=== PATIENT | male | born 1940 | race Caucasian/White ===

== ENCOUNTER → 2019-06-01 07:49 | Outpatient (BNVA) | payer MEDICARE, SELFPAY | PROVIDERS: Family Provider Family Medicine; PCP Family Medicine; Visit Provider Anesthesiology | DX: G89.29 Other chronic pain (principal); M48.061 Spinal stenosis, lumbar region without neurogenic claudication; M54.16 Radiculopathy, lumbar region; M79.651 Pain in right thigh; M79.652 Pain in left thigh; Z79.891 Long term (current) use of opiate analgesic | CPT/HCPCS: 99214 ==

== ENCOUNTER → 2019-09-13 08:17 | Outpatient (BNVA) | payer MEDICARE, SELFPAY | PROVIDERS: Family Provider Family Medicine; PCP Family Medicine; Visit Provider Anesthesiology | DX: G89.29 Other chronic pain (principal); M48.061 Spinal stenosis, lumbar region without neurogenic claudication; M54.16 Radiculopathy, lumbar region; Z79.891 Long term (current) use of opiate analgesic | CPT/HCPCS: 99213; 99214 ==

== ENCOUNTER → 2019-11-17 08:00 | Outpatient (BNVA) | payer MEDICARE, SELFPAY | PROVIDERS: Family Provider Family Medicine; PCP Family Medicine; Visit Provider Anesthesiology | DX: G89.29 Other chronic pain (principal); M54.42 Lumbago with sciatica, left side; M54.41 Lumbago with sciatica, right side; M48.061 Spinal stenosis, lumbar region without neurogenic claudication; M54.16 Radiculopathy, lumbar region; Z79.891 Long term (current) use of opiate analgesic | CPT/HCPCS: 99214 ==

== ENCOUNTER → 2020-01-18 08:44 | Outpatient (BNVA) | payer MEDICARE, SELFPAY | PROVIDERS: Family Provider Family Medicine; PCP Family Medicine; Visit Provider Anesthesiology | DX: G89.29 Other chronic pain (principal); M48.061 Spinal stenosis, lumbar region without neurogenic claudication; M54.16 Radiculopathy, lumbar region; Z79.891 Long term (current) use of opiate analgesic | CPT/HCPCS: 99213; 99214 ==

== ENCOUNTER → 2020-03-30 08:28 | Outpatient (BNVA) | payer MEDICARE, SELFPAY | PROVIDERS: Family Provider Family Medicine; PCP Family Medicine; Visit Provider Anesthesiology | DX: G89.29 Other chronic pain (principal); M48.061 Spinal stenosis, lumbar region without neurogenic claudication; M54.16 Radiculopathy, lumbar region; Z79.891 Long term (current) use of opiate analgesic | CPT/HCPCS: 99212; 99214 ==

== ENCOUNTER → 2020-05-31 08:00 | Outpatient (BNVA) | payer MEDICARE, SELFPAY | PROVIDERS: Family Provider Family Medicine; PCP Family Medicine; Visit Provider Anesthesiology | DX: G89.29 Other chronic pain (principal); M48.061 Spinal stenosis, lumbar region without neurogenic claudication; M54.16 Radiculopathy, lumbar region; Z79.891 Long term (current) use of opiate analgesic | CPT/HCPCS: 99213 ==

== ENCOUNTER → 2020-07-19 08:03 | Outpatient (BNVA) | payer MEDICARE, SELFPAY | PROVIDERS: Family Provider Family Medicine; PCP Family Medicine; Visit Provider Anesthesiology | DX: G89.29 Other chronic pain (principal); M48.061 Spinal stenosis, lumbar region without neurogenic claudication; M54.16 Radiculopathy, lumbar region; Z79.891 Long term (current) use of opiate analgesic | CPT/HCPCS: 99213; 99214 ==

== ENCOUNTER → 2020-09-27 13:44 | Outpatient (BNVA) | payer MEDICARE, SELFPAY | PROVIDERS: Family Provider Family Medicine; PCP Family Medicine; Visit Provider Anesthesiology | DX: G89.29 Other chronic pain (principal); M48.061 Spinal stenosis, lumbar region without neurogenic claudication; M54.16 Radiculopathy, lumbar region; Z79.891 Long term (current) use of opiate analgesic; Z87.891 Personal history of nicotine dependence | CPT/HCPCS: 99213 ==

== ENCOUNTER 2020-10-05 09:13 | Emergency (ER) | payer MEDICARE, SELFPAY ==
[2020-10-05 09:16] VITALS: BMI 19.8
[2020-10-05 09:26] VITALS: BP 116/55; PULSE 81; RESP 22; TEMP 36.8; O2SAT 93
[2020-10-05 09:38] VITALS: O2SAT 91
--- NOTE | 2020-10-05 10:06 | XR_ITS ---
WS: [id number] Portable AP upright chest, 10/05/2020 Clinical Data: dyspnea/cough Comparison: Portable chest, 01/04/2015. Findings: There is a right-sided dialysis catheter entering in the superior vena cava. There is a per manent pacemaker with the generator over the left lateral chest. No nodules, masses or effusions are seen. The heart is normal. Pulmonary vascularity is not remarkable. No pneumonia or pneumothorax is p resent. There are monitor leads on the chest wall. The patient has had an anterior cervical disc fusi on. XR/XR chest 1V portable [id number] Impression: 1. Dialysis catheter. 2. Permanent cardiac pacemaker.
--- NOTE | 2020-10-05 10:07 | ECG_ITS ---
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 Measurements Intervals [place] Rate: 60 P: 150 IN: 297 QRS: -61 QRSD: 137 T: 95 QT: 430 QTc: 430 Interpretive Statements ELECTRONIC ATRIAL PACEMAKER MARKED LEFT AXIS DEVIATION [QRS AXIS < -30] LEFT BUNDLE BRANCH BLOCK [120+ ms QRS DURATION, 80+ ms Q/S IN V1/V2, 85+ ms R IN I/aVL/V5/V6] Compared to ECG 01/05/2015 05:27:20 Left-axis deviation now present Left bundle-branch block now present Sinus bradycardia no longer present First degree AV block no longer present Myocardial infarct finding no longer present Electronically Signed On 10-05-2020 14:13:43 CDT by Bridget Oliver M.D. [id number] f
--- NOTE | 2020-10-05 10:09 | ED_ITS ---
HPI - Seizure General: Chief Complaint: Seizure Stated Complaint: DROP IN BP/ SEIZURE LIKE ACTIVITY Time Seen by Provider: 10/05/20 09:45 History of Present Illness: HPI Narrative: 79-year-old male presents emergency room via EMS from dialysis clinic. He is finished his dialysis run this morning gotten up to leave the building get lightheaded dizzy and had a near syncopal episode. He does have a little bit of a headache. He is not had any vomiting or diarrhea is awake and alert at this time denies any chest pain no recent illness. MD complaint: possible seizure Onset (ago): minute(s) Description of Episode: loss of consciousness and tonic-clonic movement Witnessed: Yes - by Bystander Trauma: No Seizure History: No Place: dialysis clinic Associated symptoms: Reports anorexia, malaise and weakness; Deny chest pain, chills, confusion, cough, diaphoresis, fever(s), rash, short of breath or syncope Treatments prior to arrival: none Review of Systems Const: Reports: malaise; Denies: fever(s), chills or diaphoresis ENMT: Denies: throat pain, ear or mastoid pain, nasal discharge or nasal congestion Card: Denies: chest pain or syncope Resp: Denies: dyspnea, productive cough or non-productive cough GI: Reports: nausea; Denies: abdominal pain : Denies: flank pain, dysuria, urinary frequency or urinary urgency Skin/Breast: Denies: rash or pruritus Neuro: Denies: confusion [facility] ED PFSH: Medical History (Updated 10/18/20 @ 07:49 by Donny Bradshaw DO) Encounter for long-term use of opiate analgesic Hiatal hernia Opioid contract exists Pacemaker Spinal stenosis of lumbar region with radiculopathy Surgical History H/O angioplasty History of carpal tunnel surgery of left wrist History of carpal tunnel surgery of right wrist History of shoulder surgery S/P cervical spinal fusion S/P nasal surgery Family History Other CAD (coronary artery disease) Diabetes Social History Smoking and tobacco status: former smoker Second hand smoke exposure: No Alcohol intake: never History of recent travel: No Physical Exam Const: COMMON NORMALS: no acute distress GENERAL APPEARANCE: cooperative and comfortable ORIENTATION/CONSCIOUSNESS: Yes awake, Yes oriented to person, Yes oriented to place and Yes oriented to time HENMT: COMMON NORMALS: normocephalic, atraumatic, hearing grossly normal bilaterally and external ears normal HEAD & SCALP: normocephalic and atraumatic EXTERNAL EAR: Yes external ears normal Neck/C-Spine: COMMON NORMALS: no JVD Lymph: LYMPHATIC: no lymphadenopathy noted and no lymphedema noted Resp: COMMON NORMALS: normal respiratory effort, No retractions, No use of accessory muscles and clear to auscultation bilaterally AUSCULTATION: clear to auscultation bilaterally Cardio: COMMON NORMALS: no JVD, regular rate, regular rhythm and No murmurs present (Cardio) RATE: regular rate RHYTHM: regular rhythm GI: COMMON NORMALS: Soft to palpation and No hepatosplenomegaly present AUS CULTATION: Yes normoactive bowel sounds PALPATION: Yes Soft to palpation, No Tenderness to palpation present (GI), No Guarding due to palpation present (GI) and Yes No hepatosplenomegaly present Extremity: COMMON NORMALS: normal to inspection, capillary refill normal, no clubbing, cyanosis or edema, no calf tenderness and no pedal edema Neuro: SENSORIUM/ORIENTATION: Yes oriented to person, Yes oriented to place and Yes oriented to time Skin: COMMON NORMALS: no rashes or lesions noted GENERAL SKIN EXAM: no rashes or lesions noted Course Vital Signs: Vital signs: Vital Signs Temperature 98.2 F 10/05/20 09:26 Pulse Rate 73 10/05/20 10:37 Respiratory Rate 24 H 10/05/20 10:37 Blood Pressure 120/65 10/05/20 10:37 Pulse Oximetry 93 10/05/20 10:37 MDM - Seizure MDM Narrative: Medical decision making narrative: New onset seizures with previous episodes like this recommend that he be admitted for observation to e valuate further he declined. Patient is demanding he have a private room otherwise he will not be admitted unfortunately hospitalist hopeful at this time we do not have one available he does not have any signs or symptoms suggestive of Covid there is no other infectious disease process at this point that would require him to have a private room. We encouraged him to reconsider offered him to return at any point if he changes his mind Lab Data: Labs: Lab Results 10/05/20 10/05/20 10/05/20 Range/Units 09:02 09:02 09:02 WBC 8.0 (4.0-10.0) 10^3/ uL RBC 4.18 (4.1-5.3) 10^6/u L Hgb 12.4 (11.7-16.6) g/dL Hct 38.8 L (42.0-52.0) % MCV 92.8 (80-94) fL MCH 29.7 (28.0-34.0) pg MCHC 32.0 (30.0-36.0) g/dL RDW 15.1 (12.1-15.1) % Plt Count 302 (130-400) 10^3/c mm MPV 11.1 H (7.4-10.4) fL Neut % (Auto) 50.1 % Lymph % (Auto) 34.4 % Greer % (Auto) 12.3 % Eos % (Auto) 2.8 % Baso % (Auto) 0.1 % Neut # (Auto) 4.01 (1.8-7.7) 10^3/u L Lymph # (Auto) 2.8 (0.8-4.8) 10^3/u L Greer # (Auto) 1.0 H (0.2-0.9) 10^3/u L Eos # (Auto) 0.2 (0.0-0.8) 10^3/u L Baso # (Auto) 0.0 (0.0-0.1) 10^3/u L Nucleated RBC % (a uto) 0 % Nucleated RBCs # 0.0 /100WBC Sodium 139 (136-145) mmol/L Potassium 3.7 (3.5-5.1) mmol/L Chloride 96 L (98-107) mmol/L Carbon Dioxide 29 (22-29) mmol/L Anion Gap 17.7 (5-19) BUN 10 (8-23) mg/dL Creatinine 2.6 H (0.7-1.2) mg/dL GFR Calculation Not Reportable Glucose 139 H (65-115) mg/dL Calculated Osmolal ity 289 (285-295) mOsm/k g Calcium 8.3 L (8.5-10.5) mg/dL Total Bilirubin 0.3 (0.15-1.2) mg/dL AST 17 (0-40) U/L ALT 8 (0-41) U/L Alkaline Phosphata se 105 (40-130) IU/L Troponin T Baselin e 302 H* (0-15) ng/L Troponin T 120 Min [place] (0-15) ng/L Delta Troponin T (0-10) ABS# Total Protein 6.1 L (6.6-8.7) g/dL Albumin 3.8 (3.5-5.2) g/dL Globulin 2.3 (1.3-4.6) g/dL 10/05/20 Range/Units 11:20 WBC (4.0-10.0) 10^3/ uL RBC (4.1-5.3) 10^6/u L Hgb (11.7-16.6) g/dL Hct (42.0-52.0) % MCV (80-94) fL MCH (28.0-34.0) pg MCHC (30.0-36.0) g/dL RDW (12.1-15.1) % Plt Count (130-400) 10^3/c mm MPV (7.4-10.4) fL Neut % (Auto) % Lymph % (Auto) % Greer % (Auto) % Eos % (Auto) % Baso % (Auto) % Neut # (Auto) (1.8-7.7) 10^3/u L Lymph # (Auto) (0.8-4.8) 10^3/u L Greer # (Auto) (0.2-0.9) 10^3/u L Eos # (Auto) (0.0-0.8) 10^3/u L Baso # (Auto) (0.0-0.1) 10^3/u L Nucleated RBC % (a uto) % Nucleated RBCs # /100WBC Sodium (136-145) mmol/L Potassium (3.5-5.1) mmol/L Chloride (98-107) mmol/L Carbon Dioxide (22-29) mmol/L Anion Gap (5-19) BUN (8-23) mg/dL Creatinine (0.7-1.2) mg/dL GFR Calculation Glucose (65-115) mg/dL Calculated Osmolal ity (285-295) mOsm/k g Calcium (8.5-10.5) mg/dL Total Bilirubin (0.15-1.2) mg/dL AST (0-40) U/L ALT (0-41) U/L Alkaline Phosphata se (40-130) IU/L Troponin T Baselin e (0-15) ng/L Troponin T 120 Min [place] 398.4 H (0-15) ng/L Delta Troponin T 96.4 H* (0-10) ABS# Total Protein (6.6-8.7) g/dL Albumin (3.5-5.2) g/dL Globulin (1.3-4.6) g/dL Discharge Plan Discharge Patient Disposition: Left Against Medical Advice Clinical Impression: New onset seizure, ESRD on dialysis Prescriptions: No Action furosemide [Lasix] 80 mg tablet 80 mg PO DAILY PRN (Reason: Edema) RF: 0 mirtazapine 45 mg tablet 45 mg PO BEDTIME RF: 0 Tresiba FlexTouch U-100 100 unit/mL (3 mL) insulin pen 26 unit SUBCUT DAILY RF: 0 calcium acetate(phosphat bind) 667 mg capsule 667 mg PO TID RF: 0 fentanyl 75 mcg/hr patch 72 hour 1 patch TRANSDERMA Q72H 30 Days Qty: 10 RF: 0 fentanyl 75 mcg/hr patch 72 hour 1 patch TRANSDERMA Q72H 30 Days Qty: 10 RF: 0 morphine 30 mg tablet 30 mg PO QID PRN (Reason: Pain) 30 Days Qty: 120 RF: 0 morphine 30 mg tablet 30 mg PO QID PRN (Reason: pain) 30 Days Qty: 120 RF: 0 aspirin 81 mg Tablet,Chewable 81 mg PO DAILY RF: 0 Coding Level of Care Code ED Forklift Supervisor for Gavin Bella
--- NOTE | 2020-10-05 10:10 | CT_ITS ---
WS: [id number] CT HEAD NONCONTRAST HISTORY: syncope/LOC/fall TECHNIQUE: Contiguous axial imaging performed through the brain in 2.5 mm imaging. Bone and soft tiss ue windows. Sagittal and coronal reformats reviewed. All CT scans at [facility] use at le ast one of these dose optimization techniques: automated exposure control; mA and/or kV adjustment pe r patient size (includes targeted exams where dose is matched to clinical indication); or iterative r econstruction. DLP: 742.75 mGy.cm COMPARISON: None available. No acute intracranial hemorrhage, midline shift or mass effect. Mild atrophy and mild chronic microvascular ischemic disease. No lacunar infarcts. Ventricles: Normal size with no hydrocephalus. Moderate amount of calcification in the intracranial carotid arteries. Paranasal sinuses: As visualized are clear. Mastoid air cells: Well pneumatized. Calvarium and scalp: Skull is intact with no soft tissue edema or swelling. CT/CT head wo con* [id number] IMPRESSION: 1. No intracranial hemorrhage or edema. 2. Mild cerebral atrophy and chronic ischemic disease.
[2020-10-05 10:15] LABS: Basophils % 0.1 %; Eosinophils # 0.2 10^3/uL (0.0-0.8); Eosinophils % 2.8 %; Hematocrit 38.8 % (42.0-52.0); Hemoglobin 12.4 g/dL (11.7-16.6); Lymphocytes # 2.8 10^3/uL (0.8-4.8); Lymphocytes % 34.4 %; Mean Corpuscular Hemoglobin 29.7 pg (28.0-34.0); Mean Corpuscular Volume 92.8 fL (80-94); Mean Platelet Volume 11.1 fL (7.4-10.4); Monocytes % 12.3 %; Neutrophils # 4.01 10^3/uL (1.8-7.7); Neutrophils % 50.1 %; Nucleated Red Blood Cells % 0 %; Platelet Count 302 10^3/cmm (130-400); Red Blood Count 4.18 10^6/uL (4.1-5.3); Red Cell Distribution Width 15.1 % (12.1-15.1)
[2020-10-05 10:30] LABS: Alanine Aminotransferase 8 U/L (0-41); Albumin Level 3.8 g/dL (3.5-5.2); Alkaline Phosphatase 105 IU/L (40-130); Anion Gap 17.7 (5-19); Aspartate Amino Transferase 17 U/L (0-40); Blood Urea Nitrogen 10 mg/dL (8-23); Calcium 8.3 mg/dL (8.5-10.5); Carbon Dioxide 29 mmol/L (22-29); Chloride 96 mmol/L (98-107); Globulin 2.3 g/dL (1.3-4.6); Glucose 139 mg/dL (65-115); Osmolality Calculated 289 mOsm/kg (285-295); Potassium 3.7 mmol/L (3.5-5.1); Sodium 139 mmol/L (136-145); Total Bilirubin 0.3 mg/dL (0.15-1.2); Total Protein 6.1 g/dL (6.6-8.7)
[2020-10-05 10:33] LABS: Troponin(5th) Baseline 302 ng/L (0-15)
[2020-10-05 10:37] VITALS: BP 120/65; PULSE 73; RESP 24; O2SAT 93
--- NOTE | 2020-10-05 12:07 | ECG_ITS ---
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 Measurements Intervals [place] Rate: 60 P: -9 SC: 288 QRS: -56 QRSD: 149 T: 108 QT: 445 QTc: 445 Interpretive Statements ELECTRONIC ATRIAL PACEMAKER MARKED LEFT AXIS DEVIATION [QRS AXIS < -30] LEFT BUNDLE BRANCH BLOCK [120+ ms QRS DURATION, 80+ ms Q/S IN V1/V2, 85+ ms R IN I/aVL/V5/V6] Compared to ECG 10/05/2020 10:49:04 No significant changes Electronically Signed On 10-05-2020 14:23:56 CDT by Bridget Oliver M.D. [id number] f
[2020-10-05 12:28] LABS: Troponin 5 2HR 398.4 ng/L (0-15); Troponin 5 2HR Delta 96.4 ABS# (0-10)
[2020-10-05] MEDS: nitroglycerin 1 gm/inch oint Pkt 0.5 INCH TOPICAL (13:24)
--- NOTE | 2020-10-05 13:50 | PC.NURSE ---
pt refusing to be admitted unless private room available. pt signed AMA form and left with family.
== END 2020-10-05 13:52 | disposition left against medical advice (07) ==
LOC: ER 09:46
PROVIDERS: Emergency Provider Family Medicine; PCP Family Medicine
DX: G40.89 Other seizures (principal); N18.6 End stage renal disease; Z99.2 Dependence on renal dialysis; Z95.0 Presence of cardiac pacemaker; Z87.891 Personal history of nicotine dependence; Z79.4 Long term (current) use of insulin; Z79.82 Long term (current) use of aspirin; Z53.21 Procedure and treatment not carried out due to patient leaving prior to being seen by health care provider
CPT/HCPCS: 70450; 71045; 80053; 84484; 85025; 93005; 99284

== ENCOUNTER → 2020-11-22 12:54 | Outpatient (BNVA) | payer MEDICARE, SELFPAY | PROVIDERS: PCP Family Medicine; Visit Provider Anesthesiology | DX: G89.29 Other chronic pain (principal); M48.061 Spinal stenosis, lumbar region without neurogenic claudication; M54.16 Radiculopathy, lumbar region; Z79.891 Long term (current) use of opiate analgesic; Z87.891 Personal history of nicotine dependence | CPT/HCPCS: 99213 ==

== ENCOUNTER → 2020-12-18 14:25 | Outpatient (BNVA) | payer MEDICARE, SELFPAY | PROVIDERS: PCP Family Medicine; Visit Provider Anesthesiology | DX: G89.29 Other chronic pain (principal); M48.061 Spinal stenosis, lumbar region without neurogenic claudication; M54.16 Radiculopathy, lumbar region; Z79.891 Long term (current) use of opiate analgesic | CPT/HCPCS: 99213 ==

== ENCOUNTER 2021-02-01 09:10 | Emergency (ER) | payer MEDICARE, SELFPAY ==
[2021-02-01] VITALS (8 sets, daily range): BP systolic 129–153; BP diastolic 58–75; PULSE 61–76; RESP 15–27; TEMP 36.6; O2SAT 92–97; BMI 24.5
--- NOTE | 2021-02-01 09:24 | XR_ITS ---
WS: [id number] Left shoulder, 3 views, 02/01/2021 Clinical Data: pain; fall Comparison: None. Findings: No fractures or dislocations are seen. The AC joint is normal. The adjacent left clavicle, left scapu la and ribs are normal. The soft tissues are unremarkable. The pacemaker generator is overlying the left chest. There is a monitor lead adjacent to the left cla vicle. There is an anterior cervical disc fusion. XR/XR shoulder LT min 2V* [id number] Impression: Negative left shoulder.
--- NOTE | 2021-02-01 09:24 | CT_ITS ---
WS: [id number] CT THORACIC SPINE TECHNIQUE: Noncontrast CT of the thoracic spine with coronal and sagittal reformatted images. CLINICAL INFORMATION: pain; fall; paresthesias in the upper extremities COMPARISON: None. DLP: 1408.[address] scans at [facility] use at least one of these dose optimization techniques: automated e xposure control; mA and/or kV adjustment per patient size (includes targeted exams where dose is matc hed to clinical indication); or iterative reconstruction. FINDINGS: Mild thoracic curve. Hypertrophic changes thoracic spine. No acute appearing compression fractures. No high-grade thoracic canal narrowing. Moderate facet arthropathy lower thoracic spine. Aortic calci fication. Coronary calcification. Cardiac pacer. Thickening of the left adrenal gland. Adrenal gland is normal. Cholecystectomy clips. Normal GE junction. Small esophageal hiatal hernia. CT/CT thoracic spin wo con* [id number] IMPRESSION: 1. Mild thoracic curve. No high-grade central canal stenosis. 2. Mild chronic appearing compression superior endplates at T3, T4, T5 with mi ld anterior wedging. 3. Hypertrophic changes thoracic spine.
--- NOTE | 2021-02-01 09:24 | CT_ITS ---
WS: [id number] CT HEAD TECHNIQUE: Noncontrast CT of the head obtained from the skullbase to the vertex. CLINICAL INFORMATION: pain; fall COMPARISON: October 05, 2020 DLP: 729.[address] scans at [facility] use at least one of these dose optimization techniques: automated e xposure control; mA and/or kV adjustment per patient size (includes targeted exams where dose is matc hed to clinical indication); or iterative reconstruction. FINDINGS: No evidence of intracranial hemorrhage or mass effect. Ventricular system and basal cisterns are correia nt. Mild small vessel changes with moderate parenchymal volume loss. No extra-axial fluid collections . No evidence of mass or mass effect. Normal markham-white differentiation. Paranasal sinuses and mastoid air cells are well aerated. .Normal visualized soft tissues. CT/CT head wo con* [id number] IMPRESSION: 1. No evidence of intracranial hemorrhage or mass effect. 2. Mild small vessel changes. Moderate parenchymal volume loss. 3. No acute intracranial findings.
--- NOTE | 2021-02-01 09:24 | XR_ITS ---
WS: [id number] Right shoulder, 3 views, 02/01/2021 Clinical Data: pain; fall Comparison: None. Findings: No fractures or dislocations are seen. The AC joint is normal. The adjacent right clavicle, right sca pula and ribs are normal. The soft tissues are unremarkable. There is a monitor lead over the right axilla. The right dialysis catheter and pacemaker wires are vi sible. There is an anterior cervical disc fusion. XR/XR shoulder RT min 2V* [id number] Impression: Negative right shoulder.
--- NOTE | 2021-02-01 09:24 | XR_ITS ---
WS: [id number] Portable AP upright chest, 02/01/2021 Clinical Data: fall; chest wall pain Comparison: Portable chest, 10/05/2020. Findings: The right dialysis catheter, permanent pacemaker and monitor leads are in good position. No nodules, masses or effusions are seen. The heart is normal. The pulmonary vascularity is not increas ed. No pneumonia or pneumothorax is seen. No subcutaneous emphysema is present. There is an anterior cervical disc fusion. XR/XR chest 1V portable [id number] Impression: No change from previous chest x-ray.
--- NOTE | 2021-02-01 09:24 | CT_ITS ---
WS: [id number] CT CERVICAL TRAUMA TECHNIQUE: Noncontrast CT of the cervical spine with coronal and sagittal reformatted images. CLINICAL INFORMATION: pain; fall; paresthesias in upper extremities bilaterally COMPARISON: DLP: 307.[address] scans at [facility] use at least one of these dose optimization techniques: automated e xposure control; mA and/or kV adjustment per patient size (includes targeted exams where dose is matc hed to clinical indication); or iterative reconstruction. FINDINGS: Straightening of the normal cervical lordosis. Prior postoperative changes anterior cervical fusion C 4-C7. Normal craniocervical junction. Normal C1-C2 articulation. Dens is normal in appearance. Normal occipital condyles. Mild central canal stenosis C2-3 and severe central canal stenosis C3-4 due to s mall central disc protrusions. C3-C4 spinal canal narrowing is progressed since 17 where it was moderate. Indentation and flattening of the cervical cord at this level. Normal prevertebral soft tissues.Mastoids air cells are well aerated. CT/CT cervical spin wo con* [id number] IMPRESSION: 1. No evidence of acute fracture or dislocation. 2. 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 Inde ntation and flattening of the cervical cord appears progressed since 2017.
--- NOTE | 2021-02-01 09:26 | XR_ITS ---
WS: [id number] Pelvis, AP view, 02/01/2021 Clinical Data: pain; fall Comparison: None. Findings: No fractures or dislocations are seen. The SI joints and pubic symphysis are intact. The soft tissues are not remarkable. There is a large amount of fecal material in the colon. There is a catheter in the left abdomen and true pelvis. XR/XR pelvis 1-2V* [id number] Impression: Negative for fracture.
[2021-02-01] MEDS: morphine 4 mg/mL SDV 1 mL 2 MG IVP ×2 (09:36→10:10)
[2021-02-01] MEDS: ondansetron 2 mg/ML SDV 2 mL 4 MG IVP (09:36)
--- NOTE | 2021-02-01 09:42 | W.ED.FALL ---
HPI - Fall General: Chief Complaint: Fall Stated Complaint: FALL Time Seen by Provider: 02/01/21 09:13 Source: patient and EMS Mode of arrival: EMS Limitations: no limitations History of Present Illness: HPI Narrative: Patient reportedly finished hemodialysis at the clinic and was walking outside to his truck and tripped and fell backwards. Patient with complaints of moderate posterior lower neck pain and upper back pain with paresthesias in both upper extremities. He states the paresthesias started after his fall. He also complains of anterior and posterior chest wall pain. Denies any shortness of breath or abdominal pain. Patient also does peritoneal dialysis. He has a pacemaker and dialysis catheter. Dialysis catheter is in right chest and pacemaker in left chest. No loss conscious. EMS reported small abrasion to occipital scalp. Patient arrived in hard cervical collar. Patient is moving all his extremities well. MD complaint: fall Onset (ago): minute(s) (Just prior to arrival) Fall from: standing Fall witnessed: no Place fall occurred: other ([facility] clinic) Loss of consciousness: None Prolonged down time: no Symptoms prior to fall: none Context: tripped/slipped Location of injury: head, back and other (Bilateral shoulders) Location of injury - extremities: Bilateral: shoulder Severity: moderate Quality: sharp Associated symptoms-after fall: Reports chest pain, neck pain and other (Paresthesias in bilateral upper extremity); Denies abdominal pain, confusion, difficulty walking, headache(s), hematuria, lightheadedness, short of breath, vertigo or weakness Review of Systems Const: Denies: fever(s) or chills Eyes: Denies: change in vision ENMT: Denies: throat pain Card: Reports: chest pain; Denies: palpitations or lightheadedness Resp: Denies: dyspnea or wheezing GI: Denies: abdominal pain, nausea or vomiting : Denies: flank pain or hematuria Musc: Reports: neck pain, back pain and extremity pain; Denies: joint stiffness or muscle weakness Skin/Breast: Reports: other (Abrasion to occipital scalp); Denies: rash or pruritus Neuro: Reports: sensory changes (Paresthesias in upper extremities bilaterally); Denies: headache(s), difficulty walking, vertigo or confusion Psych: Reports: anxiety Gerard/Lymph: Denies: enlarged lymph nodes All/Imm: Denies: urticaria PFSH ED PFSH: Medical History Encounter for long-term use of opiate analgesic Hiatal hernia Opioid contract exists Pacemaker Spinal stenosis of lumbar region with radiculopathy Surgical History H/O angioplasty History of carpal tunnel surgery of left wrist History of carpal tunnel surgery of right wrist History of shoulder surgery S/P cervical spinal fusion S/P nasal surgery Family History Other CAD (coronary artery disease) Diabetes Social History Smoking and tobacco status: former smoker Second hand smoke exposure: No Alcohol intake: never History of recent travel: No Physical Exam Const: COMMON NORMALS: no acute distress, patient oriented x3, no limitations, alert and well nourished EXAM LIMITATIONS: altered mental status GENERAL APPEARANCE: cooperative HENMT: COMMON NORMALS: normocephalic, external ears normal and Normal external nose present HEAD & SCALP: normocephalic and abrasion (Superficial abrasion to the occipital scalp.) FACE & SINUS: normal facial exam NOSE: Normal external nose present EXTERNAL EAR: Yes external ears normal MOUTH: Normal oral and palatal mucosa present Eye: COMMON NORMALS: Equal, round and reactive pupils present and EOMs intact bilaterally PUPIL: Yes Equal, round and reactive pupils present Neck/C-Spine: COMMON NORMALS: no lymphadenopathy and no JVD GENERAL: Yes normal visual inspection CERVICAL SPINE: Yes collar present OTHER: Patient with complaints of pain to the midline neck and paraspinous muscles of the lower posterior spine cervical spine. No step-off. Hard cervical collar is in place. Lymph: LYMPHATIC: no lymphadenopathy noted Chest: COMMONS NORMALS: normal inspection of the chest CHEST: No Ecchymosis present and No rash OTHER: Mild pain to the sternum with palpation. No evidence of injury or swelling or ecchymosis. Resp: COMMON NORMALS: normal respiratory effort, No retractions and clear to auscultation bilaterally EFFORT & INSPECTION: No respiratory distress AUSCULTATION: clear to auscultation bilaterally Cardio: COMMON NORMALS: no JVD, regular rate, regular rhythm and Peripheral pulses 2+ throughout JUGULAR VENOUS DISTENTION: no JVD RATE: regular rate RHYTHM: regular rhythm PERIPHERAL PULSES: Peripheral pulses 2+ throughout GI: COMMON NORMALS: Normal to inspection, nondistended, normoactive bowel sounds present and non-tender : COMMON NORMALS: Yes no CVA tenderness BLADDER/KIDNEY EXAM: Yes no CVA tenderness Back/Pelvis: COMMON NORMALS: no CVA tenderness GENERAL BACK: Yes other (Mild pain along the paraspinous muscles of the upper thoracic spine. ) OTHER: No abrasions or lacerations to the back. Extremity: COMMON NORMALS: normal to inspection, full ROM and capillary refill normal NARRATIVE EXTREMITY EXAM: Normal strength and motor of the upper and lower extremities bilaterally. Patient reports minimal tingling in both hands. Neuro: COMMON NORMALS: patient oriented x3, CN's II-XII intact bilaterally, moves all extremities, no focal motor deficits, no sensory deficits noted and deep tendon reflexes 2+ bilaterally SENSORIUM/ORIENTATION: Yes alert Psych: COMMON NORMALS: mental status grossly normal and Normal thought process present ATTITUDE: Yes Other attitude/behavior findings present (Psych) (Mild anxiety) THOUGHT PROCESS: Normal thought process present Skin: COMMON NORMALS: no rashes or lesions noted NARRATIVE SKIN EXAM: Mild abrasion to occipital scalp. GENERAL SKIN EXAM: no rashes or lesions noted Course Vital Signs: Vital signs: Vital Signs Temperature 97.8 F 02/01/21 09:11 Pulse Rate 65 02/01/21 12:30 Respiratory Rate 22 H 02/01/21 12:30 Blood Pressure 129/69 02/01/21 12:30 Pulse Oximetry 92 02/01/21 12:30 MDM - Fall MDM Narrative: Medical decision making narrative: See nursing assessment. At the request of the patient, I did contact [facility] neurosurgeon on-call Dr. David Baltazar. He states he will see the patient in clinic and does not require inpatient admission. He did not suggest start the patient on steroids. Will go ahead and leave the patient in a hard cervical collar until follow-up with Dr. Baltazar. Imaging Data^: CXR: Radiologist's impression: WS: [id number] Portable AP upright chest, 02/01/2021 Clinical Data: fall; chest wall pain Comparison: Portable chest, 10/05/2020. Findings: The right dialysis catheter, permanent pacemaker and monitor leads are in good position. No nodules, masses or effusions are seen. The heart is normal. The pulmonary vascularity is not increased. No pneumonia or pneumothorax is seen. No subcutaneous emphysema is present. There is an anterior cervical disc fusion. XR/XR chest 1V portable [id number] Impression: No change from previous chest x-ray. Dictated By:Krystal Dee MDSigned By:Krystal Dee MDSigned Date/Time:02/01/21 1005 Other Xray: Attestation: I personally reviewed and interpreted this imaging study as follows: My impression: AP pelvis x-ray appears normal. No fracture seen. Bilateral shoulder x-rays show arthritic changes but no acute fracture seen. Awaiting radiology interpretation. There is evidence of dialysis catheter in right chest. There is also evidence of previous cervical spine fusion surgery. Radiologist's impression: Right shoulder, 3 views, 02/01/2021 Clinical Data: pain; fall Comparison: None. Findings: No fractures or dislocations are seen. The AC joint is normal. The adjacent right clavicle, right scapula and ribs are normal. The soft tissues are unremarkable. There is a monitor lead over the right axilla. The right dialysis catheter and pacemaker wires are visible. There is an anterior cervical disc fusion. XR/XR shoulder RT min 2V* [id number] Impression: Negative right shoulder. Dictated By:Krystal Dee MDSigned By:Krystal Dee MDSigned Date/Time:02/01/21 1009 Left shoulder, 3 views, 02/01/2021 Clinical Data: pain; fall Comparison: None. Findings: No fractures or dislocations are seen. The AC joint is normal. The adjacent left clavicle, left scapula and ribs are normal. The soft tissues are unremarkable. The pacemaker generator is overlying the left chest. There is a monitor lead adjacent to the left clavicle. There is an anterior cervical disc fusion. XR/XR shoulder LT min 2V* [id number] Impression: Negative left shoulder. Dictated By:Krystal Dee MDSigned By:Krystal Deeigned Date/Time:02/01/21 1008 WS: [id number] Pelvis, AP view, 02/01/2021 Clinical Data: pain; fall Comparison: None. Findings: No fractures or dislocations are seen. The SI joints and pubic symphysis are intact. The soft tissues are not remarkable. There is a large amount of fecal material in the colon. There is a catheter in the left abdomen and true pelvis. XR/XR pelvis 1-2V* [id number] Impression: Negative for fracture. Dictated By:Krystal Dee MDSigned By:Krystal Dee MDSigned Date/Time:02/01/[address] Head: Radiologist's impression: CT HEAD TECHNIQUE: Noncontrast CT of the head obtained from the skullbase to the vertex. CLINICAL INFORMATION: pain; fall COMPARISON: October 05, 2020 DLP: 729.[address] scans at [facility] use at least one of these dose optimization techniques: automated exposure control; mA and/or kV adjustment per patient size (includes targeted exams where dose is matched to clinical indication); or iterative reconstruction. FINDINGS: No evidence of intracranial hemorrhage or mass effect. Ventricular system and basal cisterns are patent. Mild small vessel changes with moderate parenchymal volume loss. No extra-axial fluid collections. No evidence of mass or mass effect. Normal markham-white differentiation. Paranasal sinuses and mastoid air cells are well aerated. .Normal visualized soft tissues. CT/CT head wo con* [id number] IMPRESSION: 1. No evidence of intracranial hemorrhage or mass effect. 2. Mild small vessel changes. Moderate parenchymal volume loss. 3. No acute intracranial findings. Dictated By:Rohan Ferrell MDSigned By:Rohan Ferrell MDSigned Date/Time:02/01/[address]: Radiologist's impression: WS: [id number] CT CERVICAL TRAUMA TECHNIQUE: Noncontrast CT of the cervical spine with coronal and sagittal reformatted images. CLINICAL INFORMATION: pain; fall; paresthesias in upper extremities bilaterally COMPARISON: DLP: 307.[address] scans at [facility] use at least one of these dose optimization techniques: automated exposure control; mA and/or kV adjustment per patient size (includes targeted exams where dose is matched to clinical indication); or iterative reconstruction. FINDINGS: Straightening of the normal cervical lordosis. Prior postoperative changes anterior cervical fusion C4-C7. Normal craniocervical junction. Normal C1-C2 articulation. Dens is normal in appearance. Normal occipital condyles. Mild central canal stenosis C2-3 and severe central canal stenosis C3-4 due to small central disc protrusions. C3-C4 spinal canal narrowing is progressed since thousand 17 where it was moderate. Indentation and flattening of the cervical cord at this level. Normal prevertebral soft tissues.Mastoids air cells are well aerated. CT/CT cervical spin wo con* [id number] IMPRESSION: 1. No evidence of acute fracture or dislocation. 2. 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 Indentation and flattening of the cervical cord appears progressed since 2017. Dictated By:Rohan Ferrell MDSigned By:Rohan Ferrell MDSigned Date/Time:02/01/[address] THORACIC SPINE TECHNIQUE: Noncontrast CT of the thoracic spine with coronal and sagittal reformatted images. CLINICAL INFORMATION: pain; fall; paresthesias in the upper extremities COMPARISON: None. DLP: 1408.[address] [facility] least one of these dose optimization techniques: automated exposure control; mA and/or kV adjustment per patient size (includes targeted exams where dose is matched to clinical indication); or iterative reconstruction. FINDINGS: Mild thoracic curve. Hypertrophic changes thoracic spine. No acute appearing compression fractures. No high-grade thoracic canal narrowing. Moderate facet arthropathy lower thoracic spine. Aortic calcification. Coronary calcification. Cardiac pacer. Thickening of the left adrenal gland. Adrenal gland is normal. Cholecystectomy clips. Normal GE junction. Small esophageal hiatal hernia. CT/CT thoracic spin wo con* [id number] IMPRESSION: 1. Mild thoracic curve. No high-grade central canal stenosis. 2. Mild chronic appearing compression superior endplates at T3, T4, T5 with mild anterior wedging. 3. Hypertrophic changes thoracic spine. Dictated By:Rohan Ferrell MDSigned By:Rohan Ferrell MDSigned Date/Time:02/01/21 1040 Discharge Plan Discharge Prescriptions: No Action furosemide [Lasix] 80 mg tablet 80 mg PO DAILY PRN (Reason: Edema) RF: 0 mirtazapine 45 mg tablet 45 mg PO BEDTIME RF: 0 Tresiba FlexTouch U-100 100 unit/mL (3 mL) insulin pen 26 unit SUBCUT DAILY RF: 0 calcium acetate(phosphat bind) 667 mg capsule 667 mg PO TID RF: 0 fentanyl 75 mcg/hr patch 72 hour 1 patch TRANSDERMA Q72H 30 Days Qty: 10 RF: 0 morphine 30 mg tablet 30 mg PO QID PRN (Reason: Pain) 30 Days Qty: 120 RF: 0 aspirin 81 mg Tablet,Chewable 81 mg PO DAILY RF: 0 Zofran 4 mg Tablet 4 mg PO Q6H PRN (Reason: Nausea) RF: 0 Coding Level of Care Code ED Programming Coordinator for Chg Fwd Exam Comprehensive
--- NOTE | 2021-02-01 10:49 | PC.PHAR ---
pt unable to verify- pt son states he is unsure if patient took his medications, but Ashleigh Ferrera fills meds and has most accurate list. Verified by Ashleigh Ferrera
== END 2021-02-01 13:15 | disposition home or self-care (01) ==
PROVIDERS: Emergency Provider Family Medicine; PCP Family Medicine
DX: M54.2 Cervicalgia (principal); M54.6 Pain in thoracic spine; Z79.82 Long term (current) use of aspirin; Z79.4 Long term (current) use of insulin; Z95.0 Presence of cardiac pacemaker; Z87.891 Personal history of nicotine dependence
CPT/HCPCS: 70450; 71045; 72125; 72128; 72170; 73030; 96374; 96375; 96376; 99284; J2270; J2405

== ENCOUNTER → 2021-02-12 13:36 | Outpatient (BNVA) | payer MEDICARE, SELFPAY | PROVIDERS: PCP Family Medicine; Visit Provider Anesthesiology | DX: G89.29 Other chronic pain (principal); M48.061 Spinal stenosis, lumbar region without neurogenic claudication; M54.16 Radiculopathy, lumbar region; Z79.891 Long term (current) use of opiate analgesic | CPT/HCPCS: 99213 ==

== ENCOUNTER → 2021-04-11 08:28 | Outpatient (BNVA) | payer MEDICARE, SELFPAY | PROVIDERS: PCP Family Medicine; Visit Provider Anesthesiology | DX: G89.29 Other chronic pain (principal); M48.061 Spinal stenosis, lumbar region without neurogenic claudication; M54.16 Radiculopathy, lumbar region; Z79.891 Long term (current) use of opiate analgesic; Z87.891 Personal history of nicotine dependence | CPT/HCPCS: 99213 ==